=== PATIENT | male | born 1960 | race African-American/Black ===

== ENCOUNTER → 2022-02-11 | Outpatient (CLI) | payer OTHER ==
--- NOTE | 2022-02-11 17:27 | RAD ---
Exam performed: X-ray right shoulder and lumbar spine. HISTORY: History: Low back pain and shoulder pain DATE OF SERVICE: 02/11/2022. COMPARISON: None available FINDINGS: AP and lateral view of the lumbar spine demonstrates mild scoliosis of the lumbar spine with rightwar d concavity. There is grade 1 anterolisthesis of L2 over L3. Vertebral body heights are maintained. T here is narrowing of several intervertebral disc spaces are 3/4, L4/5 and L5/S1 with osteophytic spur ring. There is no acute compression fracture. Atheromatous aortic calcification seen. Nonspecific bow el gas pattern is noted. AP view of bilateral shoulders in internal and external rotation and Y view is obtained. Normal align ment is preserved. There is no acute fracture or dislocation. No soft tissue swelling is noted. The v isualized lungs are clear. IMPRESSION: Spondylotic changes and multilevel disc degenerative changes involving the lumbar spine. No acute abnormality seen in bilateral shoulders. Electronically signed by: Karie Pan MD (02/11/2022 5:25 PM) [facility]
== END ==
LOC: RAD 14:13
PROVIDERS: ATTEND Anesthesiology Pain Medicine
DX: Z02.71 Encounter for disability determination (principal); M47.816 Spondylosis without myelopathy or radiculopathy, lumbar region; M41.86 Other forms of scoliosis, lumbar region; I70.0 Atherosclerosis of aorta; M43.16 Spondylolisthesis, lumbar region; M48.07 Spinal stenosis, lumbosacral region; M25.78 Osteophyte, vertebrae
CPT/HCPCS: 72100; 73030-50

== ENCOUNTER 2022-04-04 19:23 | Emergency (ER) | payer SELFPAY ==
[~2022-04-04] VITALS: Ht 175.3 cm; Wt 70.0 kg
[2022-04-04 19:34] VITALS: BP 151/97
--- NOTE | 2022-04-04 19:43 | PHYS DOC ---
Past Medical History Past Medical History: No Pertinent History Past Surgical History: No Surgical History Smoking Status: Current Every Day Smoker Alcohol Use: Occasionally Drug Use: None General Adult EDM: Chief Complaint: HAND PROBLEM HPI: HPI: Patient is a 61-year-old male who presents today with left wrist pain. Patient states that he fell approximately 2 weeks ago and he is having continual pain in his left wrist. Patient denies any numbness or tingling in the hand he is able to move his wrist and hand without any difficulty as well as his elbow and sh oulder. Patient also states ask this SPECIAL PROJECTS COORDINATOR "do I have to pay for this I did inform him there will be a charge to evaluate his wrist, he states he has a steam conditioner filling and they are on their way" Review of Systems: Review of Systems: Constitutional: Denies fever or chills. [] Eyes: Denies change in visual acuity. [] HENT: Denies nasal congestion or sore throat. [] Respiratory: Denies cough or shortness of breath. [] Cardiovascular: Denies chest pain or edema. [] GI: Denies abdominal pain, nausea, vomiting, bloody stools or diarrhea. [] : Denies dysuria. [] Musculoskeletal: Left wrist pain denies back pain or joint pain. [] Integument: Denies rash. [] Neurologic: Denies headache, focal weakness or sensory changes. [] Endocrine: Denies polyuria or polydipsia. [] Lymphatic: Denies swollen glands. [] Psychiatric: Denies depression or anxiety. [] Heart Score: C/O Chest Pain: No Risk Factors: Risk Factors: DM, Current or recent (<one month) smoker, HTN, HLP, family history of CAD, obesity. Risk Scores: Score 0 - 3: 2.5% MACE over next 6 weeks - Discharge Home Score 4 - 6: 20.3% MACE over next 6 weeks - Admit for Clinical Observation Score 7 - 10: 72.7% MACE over next 6 weeks - Early Invasive Strategies Physical Exam: PE: Constitutional: Well developed, well nourished, no acute distress, non-toxic appearance. [] HENT: Normocephalic, atraumatic, bilateral external ears normal, oropharynx moist, no oral exudates, nose normal. [] Eyes: PERRLA, EOMI, conjunctiva normal, no discharge. [] Neck: Normal range of motion, no tenderness, supple, no stridor. [] Cardiovascular:Heart rate regular rhythm, no murmur [] Lungs & Thorax: Bilateral breath sounds clear to auscultation [] Abdomen: Bowel sounds normal, soft, no tenderness, no masses, no pulsatile masses. [] Skin: Warm, dry, no erythema, no rash. [] Back: No tenderness, no CVA tenderness. [] Extremities: Left arm normal range of motion in the shoulder, elbow, wrist, and hand patient has neurovascular intact distal to the pain, strength is within normal limits, cap refill is less than 2 seconds, radial pulse is 2+, no tenderness or swelling noted at the site. Neurologic: Alert and oriented X 3, normal motor function, normal sensory function, no focal deficits noted. [] Psychologic: Affect normal, judgement normal, mood normal. [] Current Patient Data: Vital Signs: I reviewed patients vital signs from the chart and i noted the HR of 136 EKG: EKG: [] Radiology/Procedures: Radiology/Procedures: [REASON: fell PROCEDURE: WRIST 3V LEFT XR LT WRIST 3VIEWS 04/04/2022 8:10 PM INDICATION: Fall COMPARISON: None available TECHNIQUE: 3 views of the left wrist are provided. FINDINGS/ IMPRESSION: There is no acute fracture or dislocation. Remodeling of the ulnar styloid p rocesses favor sequela of remote fracture. Joint spaces are maintained. Bone mineralization is within normal limits. Regional soft tissues are within normal limits. There is no soft tissue gas or osseous erosion. No radiopaque foreign body. Electronically signed by: Yulia López MD (04/04/2022 11:31 PM) [facility] ] Course & Med Decision Making: Course & Med Decision Making Pertinent Labs and Imaging studies reviewed. (See chart for details) I was informed at the time of my assessment that the patient's heart rate is in the 140s, patient has no complaints of chest pain, shortness of breath, or fever and chills. Patient denies any nausea vomiting or diarrhea as well, patient will be offered by mouth fluids, he did have an odor of alcohol to him. 2039 I reviewed radiological results with Dr. Gant and he states there is no acute fracture at this time, I will place the patient in a Velcro wrist splint, I will instruct the patient to take Tylenol and/or ibuprofen as needed for pain and to follow-up with orthopedic doctor if the pain continues past 5 to 7 days. Patient's heart rate continues to be 130, I did offer the patient IV fluids to help with bring the heart rate down he declined at this time he says he is able to take by mouth fluids and he does not want to stay for IV fluids. Dragon Disclaimer: Dragon Disclaimer: This electronic medical record was generated, in whole or in part, using a voice recognition dictation system. Departure Departure Impression: Primary Impression: Left wrist sprain Qualified Codes: S63.502A - Unspecified sprain of left wrist, initial encounter Disposition: HOME / SELF CARE / HOMELESS Condition: STABLE Referrals: NO PCP (PCP) MARTHA SAN II, MD Patient Instructions: Wrist Pain Additional Instructions: Wear Velcro splint as needed for comfort Tylenol and/or ibuprofen [id number] as labeled directed for pain Follow-up with Dr. Lemus who is our orthopedic doctor on-call should you have pain in the next 5 to 7 days. Return to the emergency department if you have any chest pain, shortness of breath, or nausea and vomiting or unable to take any by mouth fluids. PINEDA JACOBSON SHIFT SUPERVISOR MELTING April 04, 2022 19:43
--- NOTE | 2022-04-04 23:33 | RAD ---
XR LT WRIST 3VIEWS 04/04/2022 8:10 PM INDICATION: Fall COMPARISON: None available TECHNIQUE: 3 views of the left wrist are provided. FINDINGS/ IMPRESSION: There is no acute fracture or dislocation. Remodeling of the ulnar styloid processes favor sequela of remote fracture. Joint spaces are maintained. Bone mineralization is within normal limits. Regional soft tissues are within normal limits. There is no soft tissue gas or osseous erosion. No radiopaque foreign body. Electronically signed by: Yulia López MD (04/04/2022 11:31 PM) [facility]
== END 2022-04-04 20:47 | disposition home or self-care (01) ==
LOC: ER 19:23
DX: S63.502A Unspecified sprain of left wrist, initial encounter (principal); F17.200 Nicotine dependence, unspecified, uncomplicated; W18.39XA Other fall on same level, initial encounter; Y93.89 Activity, other specified; Y92.89 Other specified places as the place of occurrence of the external cause; Y99.8 Other external cause status
CPT/HCPCS: 29125; 73120; 99283

== ENCOUNTER 2022-04-11 15:26 | Emergency (ER) | payer SELFPAY ==
[~2022-04-11] VITALS: Ht 175.3 cm; Wt 65.0 kg
[2022-04-11 15:44] VITALS: BP 139/78
[2022-04-11] MEDS ORDERED: LIDOCAINE 2%/EPI 1:100,000 20 ML VIAL. INJ ONE (16:15)
[2022-04-11] MEDS ORDERED: DIPHTH,PERTUSS(ACELL),TET TOX 0.5 ML DISP.SYRIN. VAX IM ONE (16:15)
[2022-04-11] MEDS ORDERED: SULF1TAB23 PO (17:43)
--- NOTE | 2022-04-11 17:43 | PHYS DOC ---
Past Medical History Past Medical History: No Pertinent History Past Surgical History: No Surgical History Smoking Status: Current Every Day Smoker Alcohol Use: None Drug Use: None General Adult EDM: Chief Complaint: INSECT BITE HPI: HPI: Patient is a 61-year-old male who presents today with an abscess. Patient states that he has had issues with a sore on the upper back area but he said over the last couple of days has had increased pain and he patient also states that he has left wrist pain, I did review his chart from states that its been causing him increased pain. Patient denies chest pain, shortness of breath, fever or chills. 1 week ago when he was here and he has not followed up or been wearing his Velcro splint which was ordered for him before he left. Patient states that he does not have the paperwork or the follow-up doctor for his wrist. Review of Systems: Review of Systems: Constitutional: Denies fever or chills. [] Eyes: Denies change in visual acuity. [] HENT: Denies nasal congestion or sore throat. [] Respiratory: Denies cough or shortness of breath. [] Cardiovascular: Denies chest pain or edema. [] GI: Denies abdominal pain, nausea, vomiting, bloody stools or diarrhea. [] : Denies dysuria. [] Musculoskeletal: Denies back pain or joint pain. [] Integument: Abscess Neurologic: Denies headache, focal weakness or sensory changes. [] Endocrine: Denies polyuria or polydipsia. [] Lymphatic: Denies swollen glands. [] Psychiatric: Denies depression or anxiety. [] Heart Score: C/O Chest Pain: No Risk Factors: Risk Factors: DM, Current or recent (<one month) smoker, HTN, HLP, family history of CAD, obesity. Risk Scores: Score 0 - 3: 2.5% MACE over next 6 weeks - Discharge Home Score 4 - 6: 20.3% MACE over next 6 weeks - Admit for Clinical Observation Score 7 - 10: 72.7% MACE over next 6 weeks - Early Invasive Strategies Current Medications: Current Medications Medications (Trade) Dose Ordered Sig/Katie Start Time Stop Time Status Last Admin Dose Admin Diphtheria/ Tetanus/Acell Pertussis (Boostrix) 0.5 ml ONCE ONCE 04/11/22 16:15 5/21/22 16:20 DC Lidocaine/ Epinephrine (LIDOCAINE 2%-EPI 1:100,000 multi-dose) 20 ml 1X ONCE 04/11/22 16:15 04/11/22 16:20 DC Allergies: Allergies: Allergies Coded Allergies Type Severity Reaction Last Updated Verified No Known Drug Allergies 04/04/22 No Physical Exam: PE: Constitutional: Well developed, well nourished, no acute distress, non-toxic appearance. [] HENT: Normocephalic, atraumatic, bilateral external ears normal, oropharynx moist, no oral exudates, nose normal. [] Eyes: PERRLA, EOMI, conjunctiva normal, no discharge. [] Neck: Normal range of motion, no tenderness, supple, no stridor. [] Cardiovascular:Heart rate regular rhythm, no murmur [] Lungs & Thorax: Bilateral breath sounds clear to auscultation [] Abdomen: Bowel sounds normal, soft, no tenderness, no masses, no pulsatile masses. [] Skin: Patient has a raised fluctuating abscess to his upper back area that has a large scab across that, area is tender to touch, no drainage noted. Back: No tenderness, no CVA tenderness. [] Extremities: No tenderness, no cyanosis, no clubbing, ROM intact, no edema. [] Neurologic: Alert and oriented X 3, normal motor function, normal sensory function, no focal deficits noted. [] Psychologic: Affect normal, judgement normal, mood normal. [] Current Patient Data: Vital Signs: Vital Signs Date Time Temp Pulse Resp B/P (MAP) Pulse Ox O2 Delivery O2 Flow Rate FiO2 04/11/22 15:44 98.2 97 18 139/78 (98) 98 98.2 EKG: EKG: [] Radiology/Procedures: Radiology/Procedures: Indication: abscess Procedure: Patient was placed on his side, upper back abscess was infiltrated with lidocaine 1% with epinephrine, after appropriate anesthetizing incision was made across the apex of the abscess, approximately 5 to 7 mL of purulent drainage noted, hemostats were used to break up any inoculations within the abscess, area was then irrigated with 250 mL of normal saline, dressing was placed by nursing staff. Tetanus was updated by nursing staff The patient tolerated the procedure well. Course & Med Decision Making: Course & Med Decision Making Pertinent Labs and Imaging studies reviewed. (See chart for details) Abscess was drained, dressing by nursing staff was placed, patient states his back does feel better and is less painful, patient will be placed on a dose of Bactrim DS for 5 days, patient is to cleanse the wound twice daily with mild soap and water watching for any signs and symptoms of infection, patient is instructed to return here to the emergency department should he develop a fever, any signs and symptoms of infection or change in mental status. Dragon Disclaimer: Asa Disclaimer: This electronic medical record was generated, in whole or in part, using a voice recognition dictation system. Departure Departure Impression: Primary Impression: Abscess Additional Impression: Left wrist pain Disposition: HOME / SELF CARE / HOMELESS Condition: STABLE Referrals: NO PCP (PCP) MARTHA SAN II, MD Patient Instructions: Abscess, Care After, Wrist Pain Additional Instructions: Bactrim DS take 1 tablet twice daily for 5 days Tylenol and/or ibuprofen as needed for pain Cleanse wound twice daily with mild soap and water Watch for any signs and symptoms of infection which may include redness, increased swelling, increased pain, or development of a fever, should this occur return here to the emergency department for further evaluation and management Follow-up with your primary care physician or one of the listed clinics below for further evaluation of your wrist and of the other sores that you have experienced in the past. [facility] [address] [place] [address] [facility] [address] [place] [address] [facility] [address] [place] [address] [facility] [address] [place] [address] [facility] [address] [place] [address] [facility] [address] [place] [address] [facility] [place] [address] [place] [address] [facility] [address] [place] [address] [facility] [address] [place] [address] [facility] [address] [place] [address] Scripts Sulfamethoxazole/Trimethoprim (BACTRIM 400-80 MG TABLET) 1 Each Tablet 1 TAB PO BID for 7 Days, #14 TAB 0 Refills Prov: PINEDA JACOBSON ROASTER HELPER 04/11/22 PINEDA JACOBSON ROASTER HELPER April 11, 2022 17:43
== END 2022-04-11 17:56 | disposition home or self-care (01) ==
LOC: ER 15:26
DX: L02.212 Cutaneous abscess of back [any part, except buttock and flank] (principal); M25.532 Pain in left wrist; F17.200 Nicotine dependence, unspecified, uncomplicated
CPT/HCPCS: 10060; 99283